=== PATIENT | male | born 2000 | race Caucasian/White ===

== ENCOUNTER 2022-04-10 21:24 | Emergency (ER) | payer OTHER | END 2022-04-10 22:30 | disposition home or self-care (01) | LOC: ER1 21:24 | DX: S51.012A Laceration without foreign body of left elbow, initial encounter (principal); R40.2410 Glasgow coma scale score 13-15, unspecified time; W01.10XA Fall on same level from slipping, tripping and stumbling with subsequent striking against unspecified object, initial encounter | CPT/HCPCS: 12001; 99283 ==